=== PATIENT | male | born 1970 | race African-American/Black ===

== ENCOUNTER 2020-08-18 16:53 | Inpatient (IN) | payer BC ==
[2020-08-18] MEDS ORDERED: Ondansetron 4 MG Tab.DIS PO PRN (17:18)
--- NOTE | 2020-08-18 17:28 | PCM.HP.2 ---
H&P History of Present Illness - General Date of Service: 08/18/20 Admit Problem/Dx: Admission Diagnosis/Problem Admission Diagnosis/Problem Pneumonia Source of Information: Patient, Provider - History of Present Illness Initial Comments - Free Text/Narative: Michaela states he started coughing, having right sided chest pain approximately last , chills, but no fever but he didn't check. Has not coughed up anything. Denies any body aches but just cold, and had some rigors. He started taking Ibuprofen 1 tab tid when chest pain started last week. He was seen in clinic today, had temp 100.1F there, had COVID test which was NEGATIVE, chest x- ray showed right lobe pneumonia. Dr Watters called over for direct admission, he had not done labs there. He denies any runny nose, sore throat, swollen glands. He denies any nausea, vomiting, diarrhea, abdominal pain. No dysuria, frequency but urine has been darker. States his hands and feet are very cold. He was last in the clinic in 2013 for acute illness, given Albuterol and Tessalon Perles. NKA. Works at [employer] in [place]. Denies tobacco use but drinks rarely, last drink was [place]. Symptom Onset Date: 08/12/20 Duration of Symptoms: Reports: Week(s): (1) Location: Reports: Chest Right Chest Pain Score (Numeric/FACES): 0 - Related Data Allergies/Adverse Reactions: Allergies Allergy/AdvReac Type Severity Reaction Status Date / Time No Known Allergies Allergy Verified 08/18/20 17:16 Home Medications: Home Meds NK [No Known Home Meds] 08/18/20 [History] Social & Family History - Tobacco Use Tobacco Use Status *Q: Never Tobacco User - Alcohol Use Alcohol Use History: Yes Alcohol Use in Last Twelve Months: Yes Alcohol Use Frequency: Rarely (06/26/2020) - Living Situation & Occupation Living situation: Reports: Occupation: Employed H&P Review of Systems - Review of Systems: Review Of Systems: Comprehensive ROS is negative, except as noted in HPI. Exam - Exam Exam: See Below - Vital Signs Vital Signs: Last Vital Signs Temp 100.8 F H 08/18/20 17:13 Pulse 108 H 08/18/20 17:13 Resp 20 08/18/20 17:13 BP 150/94 H 08/18/20 17:13 Pulse Ox 95 08/18/20 17:13 Weight: 157 lb 2 oz - Exam General: Alert, Oriented, Cooperative. No: Mild Distress HEENT: PERRLA, Conjunctiva Clear, EOMI, Hearing Intact. No: TMs Clear (blocked by cerumen, bilateral) Neck: Supple, Trachea Midline. No: Lymphadenopathy Lungs: Clear to Auscultation (AXEL), Normal Respiratory Effort, Decreased Breath Sounds (LLL), Rales (RLL). No: Wheezing Cardiovascular: Tachycardia. No: Systolic Murmur, Diastolic Murmur GI/Abdominal Exam: Normal Bowel Sounds, Soft, Non-Tender, No Distention (Male) Exam: Deferred Rectal (Males) Exam: Deferred Extremities: No Pedal Edema Peripheral Pulses: 2+: Radial (L), Radial (R) Skin: Warm, Dry, Cool (extremities) Neurological: Cranial Nerves Intact, Normal Speech, Normal Tone - Patient Data Lab Results Last 24 hrs: pending Imaging Impressions Last 24 hrs: FROM [facility] 08/18/2020 Patient Name: MICHAELA HODGE Date of : 1970 Procedure: XRAY CHEST PA AND LATERAL Date of Service: 08/18/2020 EXAM: XRAY CHEST PA AND LATERAL INDICATION:ICD-10 R05 Cough COMPARISON(S): None Available FINDINGS: PA and lateral views of the chest were obtained 08/18/2020-no comparisons. The heart and mediastinum are unremarkable. Bony structures appear to be fairly intact. Extensive peripheral infiltrate with somewhat nodular appearance is noted in the right upper and lower lobes with suggestion of some infiltrate at the right anterior lung base. The left lung and pleural space were unremarkable-no definite pleural effusion is seen on the right. Somewhat flattened diaphragm leaves mildly prominent prominent AP diameter raise question of COPD/correlate clinically. IMPRESSION: Fairly extensive peripheral infiltration on the right-a process such as covid 19 revealing a consideration although a metastatic disease cannot be excluded with this appearance. Report was called to Dr. Paz at 1633 hours. Finalized by: Juan Jensen MD on 08/18/2020 4:35 PM [facility] Sepsis Event Note - Focused Exam Vital Signs: Vital Signs Temp Pulse Resp BP Pulse Ox 08/18/20 17:13 100.8 F H 108 H 20 150/94 H 95 *Q Meaningful Use (ADM) - VTE Risk Assess *Q Each Risk Factor Represents 1 Point: Age 41 - 59 years, Serious lung disease including pneumonia Total Score 1 Point Risk Factors: 2 Each Risk Factor Represents 2 Points: None Total Score 2 Point Risk Factors: 0 Each Risk Factor Represents 3 Points: None Total Score 3 Point Risk Factors: 0 Each Risk Factor Represents 5 Points: None Total Score 5 Point Risk Factors: 0 Venous Thromboembolism Risk Factor Score *Q: 2 - Problem List (1) Pneumonia involving right lung SNOMED Code(s): 668416286 ICD Code: J18.9 - PNEUMONIA, UNSPECIFIED ORGANISM Status: Acute Current Visit: Yes Qualifiers: Lung location: unspecified part of lung (2) Fever SNOMED Code(s): 094095609 ICD Code: R50.9 - FEVER, UNSPECIFIED Status: Acute Current Visit: Yes Problem List Initiated/Reviewed/Updated: Yes Orders Last 24hrs: Active Orders 24 hr Category Date Time Status Patient Status [ADT] Routine ADT 08/18/20 17:18 Ordered Ambulate [RC] PER UNIT ROUTINE Care 08/18/20 17:19 Ordered Height and Weight [RC] UPON Care 08/18/20 17:18 Ordered Oxygen Therapy [RC] PRN Care 08/18/20 17:18 Ordered Up ad Cy [RC] ASDIRECTED Care 08/18/20 17:18 Ordered VTE/DVT Education [RC] Per Unit Routine Care 08/18/20 17:18 Ordered Vital Signs [RC] Q4H Care 08/18/20 17:18 Ordered Regular Diet [DIET] Diet 08/18/20 Dinner Ordered CBC WITH AUTO DIFF [HEME] Stat Lab 08/18/20 17:18 Ordered COMPREHENSIVE METABOLIC PN,CMP [CHEM] Stat Lab 08/18/20 17:18 Ordered CULTURE BLOOD [BC] Urgent Lab 08/18/20 17:20 Ordered CULTURE BLOOD [BC] Urgent Lab 08/18/20 17:20 Ordered LACTIC ACID [CHEM] Routine Lab 08/18/20 17:18 Ordered UA W/MICROSCOPIC [URIN] Stat Lab 08/18/20 17:18 Ordered Acetaminophen [TylenoL] Med 08/18/20 17:18 Ordered 650 mg PO Q4H PRN Azithromycin [Zithromax] 500 mg Med 08/18/20 17:30 Ordered Sodium Chloride 0.9% [Normal Saline (AdvBag)] 250 ml IV Q24H Ondansetron [Zofran ODT] Med 08/18/20 17:18 Ordered 4 mg PO Q4H PRN Saccharomyces Boulardii [Florastor] Med 08/18/20 21:00 Ordered 500 mg PO BID Sodium Chloride 0.9% @ 125 MLS/HR (1000ml) Med 08/18/20 17:30 Ordered Sodium Chloride 0.9% [Normal Saline] 1,000 ml IV ASDIRECTED Sodium Chloride 0.9% [Saline Flush] Med 08/18/20 17:18 Ordered 10 ml FLUSH ASDIRECTED PRN cefTRIAXone [Rocephin] Med 08/18/20 17:30 Ordered 2 gm IVPUSH Q24H guaiFENesin [Mucinex] Med 08/18/20 21:00 Ordered 600 mg PO BID Antiembolic Hose [OM.PC] Per Unit Routine Oth 08/18/20 17:19 Ordered Blood Culture x2 Reflex Set [OM.PC] Urgent Oth 08/18/20 17:18 Ordered Saline Lock Insert [OM.PC] Routine Oth 08/18/20 17:18 Ordered Resuscitation Status Routine Resus Stat 08/18/20 17:18 Ordered Medication Orders Acetaminophen (Tylenol) 650 mg PO Q4H PRN PRN Reason: Pain (Mild 1-3)/fever Ceftriaxone Sodium (Rocephin) 2 gm IVPUSH Q24H SUSHIL Guaifenesin (Mucinex) 600 mg PO BID SUSHIL Sodium Chloride (Normal Saline) 1,000 mls @ 125 mls/hr IV ASDIRECTED SUSHIL Azithromycin 500 mg/ Sodium (Chloride) 250 mls @ 250 mls/hr IV Q24H SUSHIL Ondansetron HCl (Zofran Odt) 4 mg PO Q4H PRN PRN Reason: nausea, able to take PO Saccharomyces Boulardii (Florastor) 500 mg PO BID SUSHIL Sodium Chloride (Saline Flush) 10 ml FLUSH ASDIRECTED PRN PRN Reason: Keep Vein Open Assessment/Plan Comment:: 1. Admit for inpatient treatment of right lobe pneumonia, fever. 2. PNA: Rocephin 2 g IV q24h, Azithromycin 500 mg IV q24h, CBC, CMP, blood cultures x 2, urine and Lactic acid ordered. Guaifenesin 600 mg bid. Florastor 500 mg bid. Covid was negative, symptoms >7 days so will not order influenza. 3. Fever: Acetaminophen 650 mg q4h as needed, Ibuprofen 400 mg po q4h as needed. 4. Regular diet. 5. Activity: ad cy, ambulate. 6. DVT prophylaxis: TEDs BLE, ambulate. 7. CODE STATUS: FULL. - Mortality Measure Prognosis:: Good
[2020-08-18] MEDS: Sodium Chloride 0.9% 1,000 ML IV SCH (18:20)
[2020-08-18] MEDS: cefTRIAXone 2 GM Vial IVPUSH SCH (18:20)
[2020-08-18] MEDS: Sodium Chloride 0.9% 10 ML Syringe FLUSH PRN (18:25)
[2020-08-18] MEDS: Azithromycin 500 MG in Sodium Chloride 0.9% 250 ML IV SCH (18:28)
[2020-08-18] MEDS: Saccharomyces Boulardii (Probiotic) 250 MG Cap PO SCH (20:04)
[2020-08-18] MEDS: Acetaminophen 325 MG Tab PO PRN (20:05)
[2020-08-18] MEDS: guaiFENesin 600 MG Tab.ER PO SCH (20:05)
[2020-08-18] MEDS: Ibuprofen 400 MG Tab PO PRN (20:59)
[2020-08-19] MEDS: Acetaminophen 325 MG Tab PO PRN (00:10)
[2020-08-19] MEDS: Sodium Chloride 0.9% 1,000 ML IV SCH ×3 (03:28→20:33)
[2020-08-19] MEDS: guaiFENesin 600 MG Tab.ER PO SCH ×2 (09:02→20:32)
[2020-08-19] MEDS: Saccharomyces Boulardii (Probiotic) 250 MG Cap PO SCH ×2 (09:02→20:32)
--- NOTE | 2020-08-19 11:18 | PCM.PN ---
- General Info Date of Service: 08/19/20 Subjective Update: Michele had temps of 101.2, 101.6 overnight. States he is feeling better though, appetite is improved. Ate his breakfast okay. Nonproductive cough. Covid and influenza negative. No nausea, vomiting or diarrhea. - Patient Data Vitals - Most Recent: Last Vital Signs Temp 98.5 F 08/19/20 09:00 Pulse 74 08/19/20 09:00 Resp 20 08/19/20 09:00 BP 139/95 H 08/19/20 09:00 Pulse Ox 97 08/19/20 09:00 Weight - Most Recent: 157 lb 2 oz I&O - Last 24 Hours: Intake & Output 08/18/20 08/19/20 08/19/20 22:59 06:59 14:59 Intake Total 400 1668 Output Total 580 Balance 400 1088 Lab Results Last 24 Hours: Laboratory Results - last 24 hr 08/18/20 08/18/20 08/18/20 Range/Units 17:30 17:30 17:30 WBC 9.0 (3.2-10.1) x10-3/uL RBC 4.18 (3.90-5.90) x10(6)uL Hgb 12.8 L (12.9-17.7) g/dL Hct 39.8 (38.3-50.1) % MCV 95.1 (80.8-98.7) fL MCH 30.6 (27.0-33.3) pg MCHC 32.2 (28.7-35.3) g/dL RDW 13.0 (12.4-15.0) % Plt Count 281 (117-477) x10(3)uL MPV 8.3 (6.7-11.0) fL Neut % (Auto) 80.1 H (40.3-71.8) % Lymph % (Auto) 9.1 L (15.8-45.3) % [place] % (Auto) 10.5 (5.5-15.2) % Eos % (Auto) 0.1 (0.1-6.8) % Baso % (Auto) 0.2 L (0.3-3.8) % Neut # (Auto) 7.2 H (1.7-6.9) x10-3/uL Lymph # (Auto) 0.8 (0.5-4.5) x10-3/uL [place] # (Auto) 0.9 (0.0-1.2) x10-3/uL Eos # (Auto) 0.0 (0.0-0.6) x10-3/uL Baso # (Auto) 0.0 (0.0-0.3) x10-3/uL Sodium 136 (135-145) mmol/L Potassium 4.0 (3.5-5.3) mmol/L Chloride 98 L (100-110) mmol/L Carbon Dioxide 30 (21-32) mmol/L BUN 15 (7-18) mg/dL Creatinine 1.3 (0.70-1.30) mg/dL Est Cr Clr Drug Dosing 63.56 mL/min Estimated GFR (MDRD) > 60 (>60) BUN/Creatinine Ratio 11.5 (9-20) Glucose 132 H (80-116) mg/dL Lactic Acid 1.7 (0.4-2.0) mmol/L Calcium 8.6 (8.6-10.2) mg/dL Total Bilirubin 0.8 (0.1-1.3) mg/dL AST 74 H (5-25) IU/L ALT 53 H (12-36) U/L Alkaline Phosphatase 129 H (56-112) IU/L Total Protein 8.0 (6.0-8.0) g/dL Albumin 2.6 L (3.5-5.2) g/dL Globulin 5.4 g/dL Albumin/Globulin Ratio 0.5 Urine Color (YELLOW) Urine Appearance (CLEAR) Urine pH (5.0-6.5) Ur Specific [place] (1.010-1.025) Urine Protein (NEGATIVE) mg/dL Urine Glucose (UA) (NORMAL) mg/dL Urine Ketones (NEGATIVE) mg/dL Urine Occult Blood (NEGATIVE) Urine Nitrite (NEGATIVE) Urine Bilirubin (NEGATIVE) Urine Urobilinogen (NEGATIVE) mg/dL Ur Leukocyte Esterase (NEGATIVE) Urine RBC (0-5) Urine WBC (0-5) Ur Squamous Epith Cells (NS,R,O) Urine Bacteria (NS) 08/19/20 08/19/20 08/19/20 Range/Units 00:18 06:20 06:20 WBC 6.7 (3.2-10.1) x10-3/uL RBC 3.91 (3.90-5.90) x10(6)uL Hgb 12.0 L (12.9-17.7) g/dL Hct 37.3 L (38.3-50.1) % MCV 95.2 (80.8-98.7) fL MCH 30.7 (27.0-33.3) pg MCHC 32.2 (28.7-35.3) g/dL RDW 13.4 (12.4-15.0) % Plt Count 243 (117-477) x10(3)uL MPV 8.4 (6.7-11.0) fL Neut % (Auto) 63.5 (40.3-71.8) % Lymph % (Auto) 21.9 (15.8-45.3) % [place] % (Auto) 12.3 (5.5-15.2) % Eos % (Auto) 1.8 (0.1-6.8) % Baso % (Auto) 0.5 (0.3-3.8) % Neut # (Auto) 4.3 (1.7-6.9) x10-3/uL Lymph # (Auto) 1.5 (0.5-4.5) x10-3/uL [place] # (Auto) 0.8 (0.0-1.2) x10-3/uL Eos # (Auto) 0.1 (0.0-0.6) x10-3/uL Baso # (Auto) 0.0 (0.0-0.3) x10-3/uL Sodium 139 (135-145) mmol/L Potassium 4.1 (3.5-5.3) mmol/L Chloride 104 D (100-110) mmol/L Carbon Dioxide 31 (21-32) mmol/L BUN 13 (7-18) mg/dL Creatinine 1.1 (0.70-1.30) mg/dL Est Cr Clr Drug Dosing 75.11 mL/min Estimated GFR (MDRD) > 60 (>60) BUN/Creatinine Ratio 11.8 (9-20) Glucose 93 (80-116) mg/dL Lactic Acid (0.4-2.0) mmol/L Calcium 8.7 (8.6-10.2) mg/dL Total Bilirubin (0.1-1.3) mg/dL AST (5-25) IU/L ALT (12-36) U/L Alkaline Phosphatase (56-112) IU/L Total Protein (6.0-8.0) g/dL Albumin (3.5-5.2) g/dL Globulin g/dL Albumin/Globulin Ratio Urine Color Yellow (YELLOW) Urine Appearance Clear (CLEAR) Urine pH 6.5 (5.0-6.5) Ur Specific [place] 1.005 L (1.010-1.025) Urine Protein Negative (NEGATIVE) mg/dL Urine Glucose (UA) Normal (NORMAL) mg/dL Urine Ketones Negative (NEGATIVE) mg/dL Urine Occult Blood Negative (NEGATIVE) Urine Nitrite Negative (NEGATIVE) Urine Bilirubin Negative (NEGATIVE) Urine Urobilinogen 1 H (NEGATIVE) mg/dL Ur Leukocyte Esterase Negative (NEGATIVE) Urine RBC 0-5 (0-5) Urine WBC 0-5 (0-5) Ur Squamous Epith Cells Occasional (NS,R,O) Urine Bacteria Occasional H (NS) Jim Results Last 24 Hours: Microbiology 08/19/20 08:46 Influenza Type A Antigen Screen - Final Nasopharyngeal Swab NEGATIVE INFLUENZA A VIRUS AG REFERENCE RANGE: NEGATIVE Influenza Type B Antigen Screen - Final NEGATIVE INFLUENZA B VIRUS AG REFERENCE RANGE: NEGATIVE Med Orders - Current: Current Medications Acetaminophen (Tylenol) 650 mg PO Q4H PRN PRN Reason: Pain (Mild 1-3)/fever Last Admin: 08/19/20 00:10 Dose: 650 mg Documented by: Ceftriaxone Sodium (Rocephin) 2 gm IVPUSH Q24H [facility] Last Admin: 08/18/20 18:20 Dose: 2 gm Documented by: Guaifenesin (Mucinex) 600 mg PO BID [facility] Last Admin: 08/19/20 09:02 Dose: 600 mg Documented by: Sodium Chloride (Normal Saline) 1,000 mls @ 125 mls/hr IV ASDIRECTED [facility] Last Admin: 08/19/20 03:28 Dose: 125 mls/hr Documented by: Azithromycin 500 mg/ Sodium (Chloride) 250 mls @ 250 mls/hr IV Q24H [facility] Last Admin: 08/18/20 18:28 Dose: 250 mls/hr Documented by: Ibuprofen (Motrin) 400 mg PO Q4H PRN PRN Reason: Fever Last Admin: 08/18/20 20:59 Dose: 400 mg Documented by: Ondansetron HCl (Zofran Odt) 4 mg PO Q4H PRN PRN Reason: nausea, able to take PO Saccharomyces Boulardii (Florastor) 500 mg PO BID [facility] Last Admin: 08/19/20 09:02 Dose: 500 mg Documented by: Sodium Chloride (Saline Flush) 10 ml FLUSH ASDIRECTED PRN PRN Reason: Keep Vein Open Last Admin: 08/18/20 18:25 Dose: 10 ml Documented by: - Exam General: Alert, Oriented, Cooperative, No Acute Distress Lungs: Clear to Auscultation (Left lobe), Normal Respiratory Effort, Decreased Breath Sounds (right lobe), Rales (RML/RUL) Cardiovascular: Regular Rate, Regular Rhythm GI/Abdominal Exam: Normal Bowel Sounds, Soft, Non-Tender, No Distention Extremities: No Pedal Edema Peripheral Pulses: 2+: Radial (L), Radial (R) Sepsis Event Note - Evaluation Sepsis Screening Result: No Definite Risk - Focused Exam Vital Signs: Vital Signs Temp Pulse Resp BP Pulse Ox 08/19/20 09:00 98.5 F 74 20 139/95 H 97 08/19/20 03:39 98.2 F 72 18 135/80 97 08/19/20 00:00 98.1 F 83 18 119/78 97 - Problem List & Annotations (1) Pneumonia involving right lung SNOMED Code(s): 857057339 Code(s): J18.9 - PNEUMONIA, UNSPECIFIED ORGANISM Status: Acute Current Visit: Yes Qualifiers: Lung location: unspecified part of lung (2) Fever SNOMED Code(s): 767794479 Code(s): R50.9 - FEVER, UNSPECIFIED Status: Acute Current Visit: Yes - Problem List Review Problem List Initiated/Reviewed/Updated: Yes - My Orders Last 24 Hours: My Active Orders 08/18/20 Dinner Regular Diet [DIET] 08/18/20 17:18 Patient Status [ADT] Routine Height and Weight [RC] UPON Oxygen Therapy [RC] PRN Up ad [place] [RC] ASDIRECTED VTE/DVT Education [RC] Per Unit Routine Vital Signs [RC] Q4H Acetaminophen [TylenoL] 650 mg PO Q4H PRN Ondansetron [Zofran ODT] 4 mg PO Q4H PRN Sodium Chloride 0.9% [Saline Flush] 10 ml FLUSH ASDIRECTED PRN Blood Culture x2 Reflex Set [OM.PC] Urgent Saline Lock Insert [OM.PC] Routine Resuscitation Status Routine 08/18/20 17:19 Ambulate [RC] PER UNIT ROUTINE Antiembolic Hose [OM.PC] Per Unit Routine 08/18/20 17:30 CULTURE BLOOD [BC] Urgent Sodium Chloride 0.9% [Normal Saline] 1,000 ml IV ASDIRECTED cefTRIAXone [Rocephin] 2 gm IVPUSH Q24H 08/18/20 17:35 CULTURE BLOOD [BC] Urgent 08/18/20 17:36 Ibuprofen [Motrin] 400 mg PO Q4H PRN 08/18/20 18:00 Azithromycin [Zithromax] 500 mg Sodium Chloride 0.9% [Normal Saline (AdvBag)] 250 ml IV Q24H 08/18/20 21:00 Saccharomyces Boulardii [Florastor] 500 mg PO BID guaiFENesin [Mucinex] 600 mg PO BID 08/19/20 08:40 Isolation [COMM] Routine 08/19/20 09:24 Incentive Spirometry [RT Incentive Spirometry] [RC] Q1HWA 08/19/20 09:25 Communication Order [RC] Q1HWA 08/20/20 06:00 BASIC METABOLIC PANEL,BMP [CHEM] Routine CBC WITH AUTO DIFF [HEME] Routine - Plan Plan:: 1. PNA: Day 2: Rocephin 2 g IV q24h, Azithromycin 500 mg IV q24h, WBC 6.7 with 63% Neutrophils today, blood cultures pending, urine & Lactic acid normal. Guaifenesin 600 mg bid. Florastor 500 mg bid. Covid was negative, influenza negative ordered since fevers were higher last night and patient was unsure when fevers started. 2. Fever: Acetaminophen 650 mg q4h as needed, Ibuprofen 400 mg po q4h as needed. 3. DVT prophylaxis: TEDs BLE, ambulate.
[2020-08-19] MEDS: Ibuprofen 400 MG Tab PO PRN (14:37)
[2020-08-19] MEDS: cefTRIAXone 2 GM Vial IVPUSH SCH (17:38)
[2020-08-19] MEDS: Azithromycin 500 MG in Sodium Chloride 0.9% 250 ML IV SCH (17:41)
[2020-08-20] MEDS: Sodium Chloride 0.9% 1,000 ML IV SCH (04:10)
[2020-08-20] MEDS: Acetaminophen 325 MG Tab PO PRN ×2 (06:28→20:17)
[2020-08-20] MEDS: guaiFENesin 600 MG Tab.ER PO SCH ×2 (09:27→20:17)
[2020-08-20] MEDS: Saccharomyces Boulardii (Probiotic) 250 MG Cap PO SCH ×2 (09:27→20:17)
[2020-08-20] MEDS: Ibuprofen 400 MG Tab PO PRN (09:27)
[2020-08-20] MEDS: Sodium Chloride 0.9% 10 ML Syringe FLUSH PRN ×2 (12:07→18:48)
--- NOTE | 2020-08-20 14:55 | PCM.PN ---
- General Info Date of Service: 08/20/20 Subjective Update: Michele had 103.4 F this morning at 6 am, feels better now, easily wakes when called his name. No nausea or vomiting. Tolerating his diet. Chest pain improved on right. No diarrhea. Functional Status: Reports: Tolerating Diet, Urinating - Patient Data Vitals - Most Recent: Last Vital Signs Temp 98.2 F 08/20/20 12:04 Pulse 86 08/20/20 12:04 Resp 20 08/20/20 12:04 BP 136/86 08/20/20 12:04 Pulse Ox 97 08/20/20 12:04 Weight - Most Recent: 157 lb 2 oz I&O - Last 24 Hours: Intake & Output 08/19/20 08/20/20 08/20/20 22:59 06:59 14:59 Intake Total 682 1147 725 Balance 682 1147 725 Lab Results Last 24 Hours: Laboratory Results - last 24 hr 08/20/20 08/20/20 Range/Units 06:10 06:10 WBC 6.2 (3.2-10.1) x10-3/uL RBC 3.88 L (3.90-5.90) x10(6)uL Hgb 11.8 L (12.9-17.7) g/dL Hct 35.8 L (38.3-50.1) % MCV 92.1 (80.8-98.7) fL MCH 30.5 (27.0-33.3) pg MCHC 33.1 (28.7-35.3) g/dL RDW 13.4 (12.4-15.0) % Plt Count 233 (117-477) x10(3)uL MPV 8.1 (6.7-11.0) fL Neut % (Auto) 76.0 H (40.3-71.8) % Lymph % (Auto) 14.7 L (15.8-45.3) % [place] % (Auto) 7.6 (5.5-15.2) % Eos % (Auto) 0.7 (0.1-6.8) % Baso % (Auto) 1.0 (0.3-3.8) % Neut # (Auto) 4.7 (1.7-6.9) x10-3/uL Lymph # (Auto) 0.9 (0.5-4.5) x10-3/uL [place] # (Auto) 0.5 (0.0-1.2) x10-3/uL Eos # (Auto) 0.0 (0.0-0.6) x10-3/uL Baso # (Auto) 0.1 (0.0-0.3) x10-3/uL Sodium 139 (135-145) mmol/L Potassium 3.8 (3.5-5.3) mmol/L Chloride 105 (100-110) mmol/L Carbon Dioxide 24 (21-32) mmol/L BUN 13 (7-18) mg/dL Creatinine 1.0 (0.70-1.30) mg/dL Est Cr Clr Drug Dosing 82.63 mL/min Estimated GFR (MDRD) > 60 (>60) BUN/Creatinine Ratio 13.0 (9-20) Glucose 94 (80-116) mg/dL Calcium 8.0 L (8.6-10.2) mg/dL Jim Results Last 24 Hours: Microbiology 08/18/20 17:35 Aerobic Blood Culture - Preliminary Blood - Venous - Lab Draw NO GROWTH AFTER 1 DAY Anaerobic Blood Culture - Preliminary NO GROWTH AFTER 1 DAY 08/18/20 17:30 Aerobic Blood Culture - Preliminary Blood - Venous NO GROWTH AFTER 1 DAY Anaerobic Blood Culture - Preliminary NO GROWTH AFTER 1 DAY 08/19/20 08:46 Influenza Type A Antigen Screen - Final Nasopharyngeal Swab NEGATIVE INFLUENZA A VIRUS AG REFERENCE RANGE: NEGATIVE Influenza Type B Antigen Screen - Final NEGATIVE INFLUENZA B VIRUS AG REFERENCE RANGE: NEGATIVE Med Orders - Current: Current Medications Acetaminophen (Tylenol) 650 mg PO Q4H PRN PRN Reason: Pain (Mild 1-3)/fever Last Admin: 08/20/20 06:28 Dose: 650 mg Documented by: Ceftriaxone Sodium (Rocephin) 2 gm IVPUSH Q24H [facility] Last Admin: 08/19/20 17:38 Dose: 2 gm Documented by: Guaifenesin (Mucinex) 600 mg PO BID [facility] Last Admin: 08/20/20 09:27 Dose: 600 mg Documented by: Azithromycin 500 mg/ Sodium (Chloride) 250 mls @ 250 mls/hr IV Q24H [facility] Last Admin: 08/19/20 17:41 Dose: 250 mls/hr Documented by: Ibuprofen (Motrin) 400 mg PO Q4H PRN PRN Reason: Fever Last Admin: 08/20/20 09:27 Dose: 400 mg Documented by: Ondansetron HCl (Zofran Odt) 4 mg PO Q4H PRN PRN Reason: nausea, able to take PO Saccharomyces Boulardii (Florastor) 500 mg PO BID [facility] Last Admin: 08/20/20 09:27 Dose: 500 mg Documented by: Sodium Chloride (Saline Flush) 10 ml FLUSH ASDIRECTED PRN PRN Reason: Keep Vein Open Last Admin: 08/20/20 12:07 Dose: 10 ml Documented by: Discontinued Medications Sodium Chloride (Normal Saline) 1,000 mls @ 125 mls/hr IV ASDIRECTED [facility] Last Admin: 08/20/20 04:10 Dose: 125 mls/hr Documented by: - Exam General: Alert, Oriented, Cooperative, No Acute Distress Lungs: Clear to Auscultation (Left lobe), Normal Respiratory Effort, Decreased Breath Sounds (Right lobe), Rales (RML/RLL) Cardiovascular: Regular Rate, Regular Rhythm GI/Abdominal Exam: Normal Bowel Sounds, Soft, Non-Tender, No Distention Extremities: No Pedal Edema Peripheral Pulses: 2+: Radial (L), Radial (R) Sepsis Event Note - Evaluation Sepsis Screening Result: No Definite Risk - Focused Exam Vital Signs: Vital Signs Temp Pulse Resp BP Pulse Ox 08/20/20 12:04 98.2 F 86 20 136/86 97 08/20/20 08:00 99.2 F 92 24 H 148/90 H 98 08/20/20 07:00 100.2 F 08/20/20 06:00 103.4 F H 98 18 161/92 H 95 - Problem List & Annotations (1) Pneumonia involving right lung SNOMED Code(s): 280087615 Code(s): J18.9 - PNEUMONIA, UNSPECIFIED ORGANISM Status: Acute Current Visit: Yes Qualifiers: Lung location: unspecified part of lung (2) Fever SNOMED Code(s): 447276207 Code(s): R50.9 - FEVER, UNSPECIFIED Status: Acute Current Visit: Yes - Problem List Review Problem List Initiated/Reviewed/Updated: Yes - My Orders Last 24 Hours: My Active Orders 08/20/20 11:12 Convert IV to Peripheral Lock [Convert IV to Saline Lock] [OM.PC] Routine 08/21/20 06:00 CBC WITH AUTO DIFF [HEME] Routine - Plan Plan:: 1. PNA: Day 3: Rocephin 2 g IV q24h, Azithromycin 500 mg IV q24h, WBC 6.2 with 76% Neutrophils today, blood cultures no growth to date, urine & Lactic acid normal. Guaifenesin 600 mg bid. Florastor 500 mg bid. Covid & Influenza negative. 2. Fever: Acetaminophen 650 mg q4h as needed, Ibuprofen 400 mg po q4h as needed. 3. DVT prophylaxis: TEDs BLE, ambulate.
[2020-08-20] MEDS: cefTRIAXone 2 GM Vial IVPUSH SCH (17:34)
[2020-08-20] MEDS: Azithromycin 500 MG in Sodium Chloride 0.9% 250 ML IV SCH (17:37)
[2020-08-21] MEDS: Ibuprofen 400 MG Tab PO PRN ×2 (00:45→08:39)
[2020-08-21] MEDS: guaiFENesin 600 MG Tab.ER PO SCH (08:40)
[2020-08-21] MEDS: Saccharomyces Boulardii (Probiotic) 250 MG Cap PO SCH (08:40)
[2020-08-21] MEDS ORDERED: FLU VACC QS2020-21(6MOS UP)/PF 60 MCG/0.5 ML SYRINGE IM ONE (09:00)
--- NOTE | 2020-08-21 14:15 | PCM.DCSUM1 ---
Discharge Summary - Hospital Course HPI Initial Comments: Michele states he started coughing, having right sided chest pain approximately last , chills, but no fever but he didn't check. Has not coughed up anything. Denies any body aches but just cold, and had some rigors. He started taking Ibuprofen 1 tab tid when chest pain started last week. He was seen in clinic today, had temp 100.1F there, had COVID test which was NEGATIVE, chest x- ray showed right lobe pneumonia. Dr Watters called over for direct admission, he had not done labs there. He denies any runny nose, sore throat, swollen glands. He denies any nausea, vomiting, diarrhea, abdominal pain. No dysuria, frequency but urine has been darker. States his hands and feet are very cold. He was last in the clinic in 2013 for acute illness, given Albuterol and Tessalon Perles. NKA. Works at [employer] in [place]. Denies tobacco use but drinks rarely, last drink was [place]. Diagnosis: Stroke: No - Discharge Data Discharge Date: 08/21/20 Discharge Disposition: Home, Self-Care 01 Condition: Good - Referral to Home Health Primary Care Physician: PCP None - Discharge Diagnosis/Problem(s) (1) Pneumonia involving right lung SNOMED Code(s): 853760815 ICD Code: J18.9 - PNEUMONIA, UNSPECIFIED ORGANISM Status: Acute Qualifiers: Lung location: unspecified part of lung (2) Fever SNOMED Code(s): 696614839 ICD Code: R50.9 - FEVER, UNSPECIFIED Status: Acute - Patient Summary/Data Hospital Course: Michele was admitted from [facility] for right middle/lower lobe pneumonia, WBC stated within normal range but neutrophils came down to 80 to 62%. His chemistry was in normal limits yesterday. He has responded well with Rocephin & Azithromycin, 3 doses received in hospital, will complete 10 day course as outpatient. He had fevers highest 103.4, has been afebrile for 24 hours. No oxygen required. Incentive spirometry & flutter valve were added, started having productive cough. Guaifenesin 600 mg bid, Florastor 250 mg bid started on admission. Blood pressures were elevated fluctuating during hospital stay, had blood pressures 125/88 last evening. Will need blood pressure rechecked in clinic. - Patient Instructions Diet: Regular Diet as Tolerated Activity: As Tolerated Driving: May Drive Today Showering/Bathing: May Shower Notify Provider of: Fever, Increased Pain, Nausea and/or Vomiting Other/Special Instructions: Follow up with Dr Watters in 1-2 weeks recheck of your pneumonia & blood pressure. Use Incentive spirometry and flutter valve 10 times every hour while awake to help with deep breathing and loosening your mucus up so you can cough out. - Discharge Plan *PRESCRIPTION DRUG MONITORING PROGRAM REVIEWED*: Not Applicable *COPY OF PRESCRIPTION DRUG MONITORING REPORT IN PATIENT FATOUMATA: Not Applicable Prescriptions/Med Rec: Acidophilus/Lactobac Spor [Acidolphilus X-Strength] 1 tab PO BID 7 Days #14 tablet Azithromycin 500 mg PO DAILY 2 Days #2 tablet Cefdinir 300 mg PO BID 7 Days #14 capsule Home Medications: Home Meds Ibuprofen 200 mg PO TID 08/19/20 [History] Acetaminophen [Tylenol] 650 mg PO Q4H PRN tablet 08/21/20 [Rx] Acidophilus/Lactobac Spor [Acidolphilus X-Strength] 1 tab PO BID 7 Days #14 tablet 08/21/20 [Rx] Azithromycin 500 mg PO DAILY 2 Days #2 tablet 08/21/20 [Rx] Cefdinir 300 mg PO BID 7 Days #14 capsule 08/21/20 [Rx] guaiFENesin [Mucinex] 600 mg PO BID tab.er 08/21/20 [Rx] Oxygen Therapy Mode: Room Air Patient Handouts: Fall Prevention in Hospitals, Adult, Venous Thromboembolism Prevention, Community-Acquired Pneumonia, Adult, [id number] - Discharge Summary/Plan Comment DC Time >30 min.: No - General Info Date of Service: 08/21/20 Subjective Update: [place] feels better, pain in right chest improved, states mainly over right middle lobe. Using IS & flutter valve getting up yellow sputum. Appetite is good. No nausea, vomiting or diarrhea. On room air. Functional Status: Reports: Pain Controlled, Tolerating Diet, Ambulating, Urinating. Denies: New Symptoms - Patient Data Vitals - Most Recent: Last Vital Signs Temp 98.9 F 08/21/20 07:25 Pulse 77 08/21/20 07:25 Resp 18 08/21/20 07:25 BP 158/108 H 08/21/20 07:25 Pulse Ox 96 08/21/20 07:25 Weight - Most Recent: 157 lb 2 oz I&O - Last 24 hours: Intake & Output 08/20/20 08/21/20 08/21/20 22:59 06:59 14:59 Intake Total 250 Balance 250 Lab Results - Last 24 hrs: Laboratory Results - last 24 hr 08/21/20 Range/Units 06:05 WBC 5.7 (3.2-10.1) x10-3/uL RBC 3.84 L (3.90-5.90) x10(6)uL Hgb 11.8 L (12.9-17.7) g/dL Hct 35.9 L (38.3-50.1) % MCV 93.4 (80.8-98.7) fL MCH 30.7 (27.0-33.3) pg MCHC 32.8 (28.7-35.3) g/dL RDW 13.4 (12.4-15.0) % Plt Count 235 (117-477) x10(3)uL MPV 7.8 (6.7-11.0) fL Neut % (Auto) 62.7 (40.3-71.8) % Lymph % (Auto) 24.1 (15.8-45.3) % [place] % (Auto) 10.1 (5.5-15.2) % Eos % (Auto) 2.2 (0.1-6.8) % Baso % (Auto) 0.9 (0.3-3.8) % Neut # (Auto) 3.6 (1.7-6.9) x10-3/uL Lymph # (Auto) 1.4 (0.5-4.5) x10-3/uL [place] # (Auto) 0.6 (0.0-1.2) x10-3/uL Eos # (Auto) 0.1 (0.0-0.6) x10-3/uL Baso # (Auto) 0.1 (0.0-0.3) x10-3/uL KAYY Results - Last 24 hrs: Microbiology 08/18/20 17:30 Aerobic Blood Culture - Preliminary Blood - Venous NO GROWTH AFTER 2 DAYS Anaerobic Blood Culture - Preliminary NO GROWTH AFTER 2 DAYS 08/18/20 17:35 Aerobic Blood Culture - Preliminary Blood - Venous - Lab Draw NO GROWTH AFTER 2 DAYS Anaerobic Blood Culture - Preliminary NO GROWTH AFTER 2 DAYS Med Orders - Current: Current Medications Discontinued Medications Acetaminophen (Tylenol) 650 mg PO Q4H PRN PRN Reason: Pain (Mild 1-3)/fever Last Admin: 08/20/20 20:17 Dose: 650 mg Documented by: Ceftriaxone Sodium (Rocephin) 2 gm IVPUSH Q24H [facility] Last Admin: 08/20/20 17:34 Dose: 2 gm Documented by: Guaifenesin (Mucinex) 600 mg PO BID [facility] Last Admin: 08/21/20 08:40 Dose: 600 mg Documented by: Sodium Chloride (Normal Saline) 1,000 mls @ 125 mls/hr IV ASDIRECTED [facility] Last Admin: 08/20/20 04:10 Dose: 125 mls/hr Documented by: Azithromycin 500 mg/ Sodium (Chloride) 250 mls @ 250 mls/hr IV Q24H [facility] Last Admin: 08/20/20 17:37 Dose: 250 mls/hr Documented by: Ibuprofen (Motrin) 400 mg PO Q4H PRN PRN Reason: Fever Last Admin: 08/21/20 08:39 Dose: 400 mg Documented by: Influenza Virus Vaccine (Fluzone Quad Syringe) 60 mcg IM .ONCE ONE Stop: 08/21/20 09:01 Last Admin: 08/21/20 08:42 Dose: 60 mcg Documented by: Ondansetron HCl (Zofran Odt) 4 mg PO Q4H PRN PRN Reason: nausea, able to take PO Saccharomyces Boulardii (Florastor) 500 mg PO BID [facility] Last Admin: 08/21/20 08:40 Dose: 500 mg Documented by: Sodium Chloride (Saline Flush) 10 ml FLUSH ASDIRECTED PRN PRN Reason: Keep Vein Open Last Admin: 08/20/20 18:48 Dose: 10 ml Documented by: - Exam General: Reports: Alert, Oriented, Cooperative, No Acute Distress Lungs: Reports: Clear to Auscultation (L lobe, RUL), Normal Respiratory Effort, Decreased Breath Sounds (RLL, RML), Crackles (RML) Cardiovascular: Reports: Regular Rate, Regular Rhythm GI/Abdominal Exam: Normal Bowel Sounds, Soft, Non-Tender, No Distention (Male) Exam: Deferred Rectal (Males) Exam: Deferred Extremities: No Pedal Edema, Normal Capillary Refill
== END 2020-08-21 10:15 | disposition home or self-care (01) | DRG 139 ==
LOC: UNDOADMIN 16:53 → FB.MS 16:53
PROVIDERS: ADMIT Family Medicine; ATTEND Family Medicine
DX: J18.9 Pneumonia, unspecified organism (principal); Z79.899 Other long term (current) drug therapy
CPT/HCPCS: 36415; 80048; 80053; 81001; 83605; 85025; 87040; 87804; 87804-59; 90686; 94150; 94760; A9270-GY; G0008; J0456; J0696; J7030; J7050